=== PATIENT | female | born 1970 | race Caucasian/White ===

== ENCOUNTER 2022-05-27 13:52 | Day surgery (SDC) | payer OTHER ==
[2022-05-27] MEDS ORDERED: LIDOCAINE HCL 2% 100 MG/5 ML IJ ONE (13:53)
[2022-05-27] MEDS ORDERED: Versed 2 MG/2 ML Injection ONE (15:49)
[2022-05-27] MEDS ORDERED: DIPRIVAN 200 MG/20 ML IV ONE (16:04)
[2022-05-27] MEDS ORDERED: Lactated Ringers 1,000 ML IV ONE ×2 (16:07→16:47)
--- NOTE | 2022-05-27 19:08 | XRAY ---
Indication: Bilateral L4-S1 MBB. Intraoperative fluoroscopy provided for 17 seconds. Single digital spot image submitted for interpretation demonstrates posterior needle tips projecting over the expected left and right L4-S1 nerve roots. Correlate with intraoperative findings/report.
--- NOTE | 2022-05-28 08:37 | XRAY ---
17 seconds of fluoroscopy was used in surgery for a bilateral L4-S1 MBB.
== END 2022-05-27 16:33 | disposition home or self-care (01) ==
LOC: SDC-PAIN 13:52
PROVIDERS: ATTEND Psychiatry & Neurology Pain Medicine
DX: M47.816 Spondylosis without myelopathy or radiculopathy, lumbar region (principal); Z79.899 Other long term (current) drug therapy
CPT/HCPCS: 64493; 64494; 72020; 77002; J2250; J2704

== ENCOUNTER 2022-07-01 14:04 | Day surgery (SDC) | payer OTHER ==
[2022-07-01] MEDS ORDERED: BUPIVACAINE 0.5% VIAL IJ ONE (14:05)
[2022-07-01] MEDS ORDERED: TRANDATE 20 MG/4 ML SYRINGE IV ONE (15:15)
[2022-07-01] MEDS ORDERED: Versed 2 MG/2 ML Injection ONE (15:38)
[2022-07-01] MEDS ORDERED: DIPRIVAN 200 MG/20 ML IV ONE ×2 (15:58→16:11)
[2022-07-01] MEDS ORDERED: Lactated Ringers 1,000 ML IV ONE (16:43)
--- NOTE | 2022-07-01 18:53 | XRAY ---
Indication: Bilateral L4-S1 MBB. Intraoperative fluoroscopy provided for 16 seconds. Single digital spot image submitted for interpretation demonstrates posterior needle tips projecting over the expected left and right L4-S1 nerve roots. Correlate with intraoperative findings/report.
--- NOTE | 2022-07-02 09:55 | XRAY ---
16 seconds of fluoroscopy was used in surgery for a bilateral L4-S1 MBB.
== END 2022-07-01 16:40 | disposition home or self-care (01) ==
LOC: SDC-PAIN 14:04
PROVIDERS: ATTEND Psychiatry & Neurology Pain Medicine
DX: M47.816 Spondylosis without myelopathy or radiculopathy, lumbar region (principal); Z79.899 Other long term (current) drug therapy
CPT/HCPCS: 64493; 64494; 72020; 77002; J2250; J2704

== ENCOUNTER 2022-08-26 14:14 | Day surgery (SDC) | payer OTHER ==
[2022-08-26] MEDS ORDERED: Depo-Medrol 40 MG/ML IM ONE (14:15)
[2022-08-26] MEDS ORDERED: BUPIVACAINE 0.5% VIAL IJ ONE (14:15)
[2022-08-26] MEDS ORDERED: LIDOCAINE HCL 1% 50 MG/5 ML VL PF IJ ONE (14:15)
[2022-08-26] MEDS ORDERED: TRANDATE 20 MG/4 ML SYRINGE IV ONE (15:30)
[2022-08-26 15:33] LABS: Hematocrit 44.7 % (35-47); Hemoglobin 15.3 g/dL (12.0-16.0); Mean Cell Volume 99.6 fL (78-100); Mean Corpuscular Hemoglobin 34.1 pg (26-32); Mean Corpuscular Hgb Concent. 34.2 g/dL (32-36); Mean Platelet Volume 9.2 fL (7.5-11.0); Platelet Count 268 x10^3/uL (150-450); Red Blood Count 4.49 x10^6/uL (4.1-5.4); White Blood Count 9.8 x10^3/uL (4.0-10.5)
[2022-08-26] MEDS ORDERED: Versed 2 MG/2 ML Injection ONE ×2 (15:58→16:41)
[2022-08-26 16:42] LABS: ALBUMIN 4.1 g/dL (3.5-5.0); ALKALINE PHOSPHATASE 177 U/L (38-126); ANION GAP 13.2 MEQ/L (5-15); BLOOD UREA NITROGEN 5 mg/dL (7-17); CHLORIDE 94 mmol/L (98-107); Calcium 9.1 mg/dL (8.4-10.2); Carbon Dioxide 27 mmol/L (22-30); Cholesterol 192 mg/dL (50-200); Creatinine 1 0.73 mg/dL (0.52-1.04); EST GLOMERULAR FILTRATION RATE > 60.0 ML/MIN; Glucose 117 mg/dL (74-106); HDL CHOLESTEROL 65 mg/dL (40-60); LDL, DIRECT 98 mg/dL (30-100); Potassium 3.7 mmol/L (3.5-5.1); SGOT/AST 51 U/L (14-36); SGPT/ALT 38 U/L (0-35); SODIUM 130 mmol/L (137-145); TRIGLYCERIDE 206 mg/dL (30-150); Total Protein 6.9 g/dL (6.3-8.2)
[2022-08-26] MEDS ORDERED: DIPRIVAN 200 MG/20 ML IV ONE ×2 (16:55→17:05)
[2022-08-26] MEDS ORDERED: Lactated Ringers 1,000 ML IV ONE (17:11)
--- NOTE | 2022-08-26 22:06 | XRAY ---
Indication: Right L4-S1 RFA. Intraoperative fluoroscopy provided for 22 seconds. 4 digital spot image submitted for interpretation demonstrates posterior needle tips projecting over the expected right L4-S1 nerve roots. Correlate with intraoperative findings/report.
--- NOTE | 2022-08-27 10:21 | XRAY ---
22 seconds of fluoroscopy was used in surgery for a right L4-S1 RFA.
== END 2022-08-26 17:35 | disposition home or self-care (01) ==
LOC: SDC-PAIN 14:14
PROVIDERS: ATTEND Psychiatry & Neurology Pain Medicine
DX: M47.816 Spondylosis without myelopathy or radiculopathy, lumbar region (principal); E03.9 Hypothyroidism, unspecified; Z79.899 Other long term (current) drug therapy
CPT/HCPCS: 36415; 64635; 64636; 72100; 77002; 80053; 80061; 83721; 84443; 85027; J1030; J2001; J2250; J2704

== ENCOUNTER 2022-09-02 13:17 | Day surgery (SDC) | payer OTHER ==
[2022-09-02] MEDS ORDERED: LIDOCAINE HCL 1% 50 MG/5 ML VL PF IJ ONE (13:18)
[2022-09-02] MEDS ORDERED: BUPIVACAINE 0.5% VIAL IJ ONE (13:18)
[2022-09-02] MEDS ORDERED: TRANDATE 20 MG/4 ML SYRINGE IV ONE (13:18)
[2022-09-02] MEDS ORDERED: Decadron 4 MG INJ IV ONE (13:18)
[2022-09-02] MEDS ORDERED: Versed 2 MG/2 ML Injection ONE (14:23)
[2022-09-02] MEDS ORDERED: DIPRIVAN 200 MG/20 ML IV ONE ×2 (14:41→14:54)
[2022-09-02] MEDS ORDERED: Lactated Ringers 1,000 ML IV ONE (15:08)
--- NOTE | 2022-09-02 19:16 | XRAY ---
Indication: Left L4-S1 RFA. Intraoperative fluoroscopy provided for 25 seconds. 5 digital spot image submitted for interpretation demonstrates posterior needle tips projecting over the expected left L4-S1 nerve roots. Correlate with intraoperative findings/report.
--- NOTE | 2022-09-02 19:27 | XRAY ---
25 seconds of fluoroscopy was used in surgery for a left L4-S1 RFA.
== END 2022-09-02 15:15 | disposition home or self-care (01) ==
LOC: SDC-PAIN 13:17
PROVIDERS: ATTEND Psychiatry & Neurology Pain Medicine
DX: M47.816 Spondylosis without myelopathy or radiculopathy, lumbar region (principal); Z79.899 Other long term (current) drug therapy
CPT/HCPCS: 64635; 64636; 72100; 77002; J1100; J2001; J2250; J2704

== ENCOUNTER 2022-10-22 10:03 | Day surgery (SDC) | payer OTHER ==
[2022-10-22] MEDS ORDERED: BUPIVACAINE 0.5% VIAL IJ ONE (10:04)
[2022-10-22] MEDS ORDERED: Depo-Medrol 40 MG/ML IM ONE (10:04)
[2022-10-22] MEDS ORDERED: Versed 2 MG/2 ML Injection ONE (11:13)
[2022-10-22] MEDS ORDERED: DIPRIVAN 200 MG/20 ML IV ONE (11:58)
--- NOTE | 2022-10-22 13:17 | XRAY ---
Indication: Bilateral SI joint injection. Intraoperative fluoroscopy provided for 17 seconds. 4 digital spot image submitted for interpretation demonstrates posterior needle tip projecting over the left the right SI joint. Correlate with intraoperative findings/report.
--- NOTE | 2022-10-22 13:21 | XRAY ---
17 seconds of fluoroscopy was used in surgery for a bilateral sacroiliac joint injection.
[2022-10-22] MEDS ORDERED: Lactated Ringers 1,000 ML IV ONE (14:59)
== END 2022-10-22 12:29 | disposition home or self-care (01) ==
LOC: SDC-PAIN 10:03
PROVIDERS: ATTEND Psychiatry & Neurology Pain Medicine
DX: M46.1 Sacroiliitis, not elsewhere classified (principal); Z79.899 Other long term (current) drug therapy
CPT/HCPCS: 27096; 72202; 77002; G0260; J1030; J2250; J2704